=== PATIENT | male | born 1980 | race Caucasian/White ===

== ENCOUNTER 2020-02-13 22:08 | Emergency (ER) | payer OTHER, SELFPAY ==
--- NOTE | 2020-02-13 22:12 | XR_ITS ---
WS: [id number] XR hand LT min 3V* [id number] REASON FOR EXAM: Laceration FINDINGS: There appears to be wrapping of the left distal index finger. Presumably this is the site of lacerati on. No bony or joint abnormality is identified in the index finger. No radiopaque foreign body. The remainder the examination there are no significant bony or joint abnormalities. There is mild deg enerative arthropathy in the carpal metacarpal joints of the left thumb. XR/XR hand LT min 3V* [id number] IMPRESSION: No significant bony or joint abnormality. No radiopaque foreign body.
[2020-02-13 22:15] VITALS: BP 137/89; PULSE 83; RESP 20; TEMP 36.3; O2SAT 97; BMI 26.4
--- NOTE | 2020-02-13 22:23 | ED_ITS ---
HPI - Wound/Laceration General: Chief Complaint: Wound/Laceration Stated Complaint: severe hand injury Time Seen by Provider: 02/13/20 22:14 History of Present Illness: HPI narrative: Patient is a 39-year-old male who comes to the ED with laceration to left hand. Patient was working on table saw and accidentally cut digits 2 3 and 4 on left hand. He says he is in 10 out of 10 pain. Patient says he needs an updated tetanus shot. Associated symptoms: Denies chills, fever(s), nausea or vomiting Review of Systems Const: Denies: fever(s), chills or fatigue Eyes: Denies: change in vision or eye discomfort ENMT: Denies: throat pain, odynophagia, nasal discharge or nasal congestion Card: Denies: chest pain, palpitations, edema, swelling of feet/ankles, dyspnea on exertion or orthopnea Resp: Denies: dyspnea, productive cough or non-productive cough GI: Denies: abdominal pain, nausea, vomiting, diarrhea, constipation or hematochezia : Denies: flank pain, difficulty urinating, dysuria or hematuria Musc: Denies: neck pain, back pain or extremity swelling Skin/Breast: Reports: new lesions (Laceration to digits on left hand.); Denies: rash Neuro: Denies: headache(s), numbness in extremities or weakness in extremities Physical Exam Const: COMMON NORMALS: no acute distress, patient oriented x3, healthy appearing and alert GENERAL APPEARANCE: cooperative and comfortable HENMT: COMMON NORMALS: normocephalic HEAD & SCALP: normocephalic MOUTH: Normal oral and palatal mucosa present THROAT: posterior oropharynx normal and uvula midline Neck/C-Spine: COMMON NORMALS: supple GENERAL: Yes normal visual inspection Resp: COMMON NORMALS: normal respiratory effort, No retractions, No use of accessory muscles and clear to auscultation bilaterally AUSCULTATION: clear to auscultation bilaterally Cardio: COMMON NORMALS: regular rate, regular rhythm, S1 normal heart sound present, S2 normal heart sound present, No gallops present (Cardio), No clicks present (Cardio), No murmurs present (Cardio) and Peripheral pulses 2+ throughout RATE: regular rate RHYTHM: regular rhythm HEART SOUNDS: S1 normal heart sound present and S2 normal heart sound present PERIPHERAL PULSES: Peripheral pulses 2+ throughout GI: COMMON NORMALS: Normal to inspection, nondistended, normoactive bowel sounds present, Soft to palpation, non-tender and no masses PALPATION: Yes Soft to palpation : COMMON NORMALS: Yes no CVA tenderness BLADDER/KIDNEY EXAM: Yes no CVA tenderness Back/Pelvis: COMMON NORMALS: no CVA tenderness Extremity: NARRATIVE EXTREMITY EXAM: Left hand? second digit has irregular 2 cm laceration to palmar side. Patient unable to flex DIP joint on finger. PIP joint range of motion intact. Cap refill normal. Patient appears to have flexor tendon laceration due to patient unable to move PIP joint. Third digit has irregular 1.5 cm laceration to palmar side around PIP joint. Patient has full range of motion of finger and no flexor tendon Injury noted. Cap refill normal. Fourth digit has small linear 0.5 cm laceration to palmar side on distal pad of finger. Finger is full range of motion and cap refill normal. GENERAL: Yes normal exam except as noted Neuro: COMMON NORMALS: patient oriented x3 and moves all extremities SENSORIUM/ORIENTATION: Yes alert Skin: NARRATIVE SKIN EXAM: Laceration on left hand noted in extremity section. GENERAL SKIN EXAM: dry skin Procedures Laceration Laceration 1: Site: hand (2nd digit) Side (If applicable): left Size (cm): 2 Description: irregular Depth: involves tendon Local Anesthetic: other anesthetic (Digital block performed with bupivacaine) Pre-repair: irrigated extensively (with normal saline) Skin layer closed with: nylon Size (cm): 4-0 Number of sutures: 6 Technique: simple, interrupted Laceration 2: Site: hand (3rd digit) Side (If applicable): left Size (cm): 1.5 Description: irregular Local Anesthetic: other anesthetic (Digital block performed with bupivacaine) Number of sutures: 4 Laceration 3: Site: hand (4th digit) Side (If applicable): left Size (cm): 0.5 Description: linear Depth: simple, single layer Local Anesthetic: other anesthetic (Digital block performed with bupivacaine) Pre-repair: irrigated extensively (With normal saline) Skin layer closed with: nylon Size (cm): 4-0 Number of sutures: 1 Nerve Block Nerve Block 1: Time out performed: Yes Local Anesthetic: bupivacaine 0.5% Amount of anesthesia used (mL): 30 Side: left Nerve Blocks: digital (Digital nerve block performed on digits 2, 3 and 4) Procedure Successful: Yes Patient Tolerated Procedure: well Complications: none Course Reevaluation(s): Reevaluation #1: Patient tolerated procedure well and there is no more active bleeding. Patient told to contact Dr. King the hand specialist at [facility] and he was given contact information with phone number [phone]. Vital Signs: Vital signs: Vital Signs Temperature 97.9 F 02/14/20 00:35 Pulse Rate 84 02/14/20 00:35 Respiratory Rate 18 02/14/20 00:35 Blood Pressure 138/72 02/14/20 00:35 Pulse Oximetry 99 02/14/20 00:35 MDM - Wound/Laceration MDM Narrative: Medical decision making narrative: Patient is a 39-year-old male comes to the ED with laceration to second third and fourth digit of the left hand due to table saw. Patient was given tetanus shot while here in the ED. digital nerve block performed on left hand second third and fourth digits. Laceration sites were irrigated extensively with normal saline. sutures used to close up laceration site on fingers and controlled bleeding. Patient has flexor tendon injury on index finger of left hand. Patient was given contact information for Dr. King the hand specialist at [facility]. Case management order was placed for patient to be referred to a hand specialist as well. Patient was put on a prescription of cephalexin and told to follow-up with PCP in about 7 days to reevaluate lac site and removal of sutures. I stressed to him the importance of getting in touch with hand specialist to address flexor tendon injury as soon as possible. Laceration sites were bandaged and bacitracin was also placed on wound. Patient discharged return to ED precautions given. Patient understood and agreed with plan. Imaging Data^: Xray Ortho: Attestation: I personally reviewed and interpreted this imaging study as follows: My impression: Left hand x-ray?No visible foreign bodies or fractures seen. Discharge Plan Discharge Patient Disposition: Home Clinical Impression: Laceration Flexor tendon laceration of finger with open wound Qualifiers: Encounter type: initial encounter Qualified Code(s): S56.129A - Laceration of flexor muscle, fascia and tendon of unspecified finger at forearm level, initial encounter Condition: Stable Prescriptions: New Keflex 500 mg capsule 500 mg PO Q6H 7 Days Qty: 28 RF: 0 Discharge Orders: Discharge Order (Routine); Ordered 02/14/20 Ordered By: Vipul Hamilton Discharge Diet: Regular Discharge Activity: Limit activity as instructed Patient Instructions: Suture Care (ED), Finger Laceration (ED) Activity Restrictions/Additional Instructions: Contact Dr. King the Hand specialist at [facility] in [place] ([phone]) to discuss fixing cut tendon on left index finger.. take full course of antibiotics as prescribed. Keep laceration site clean and dry for the next 48 hours. Then after that you can clean and re-bandage daily. Watch for signs of infection such as redness, warmth, increased tenderness and puslike drainage. If you see the signs of infection return to the ED, urgent care or PCP for reevaluation. call your PCP to schedule a follow-up appointment for reevaluation and suture removal in about 7-10 days. Continue taking all home meds. Follow discharge plans as discussed. You can return to the ED if symptoms worsen. Coding Level of Care Code ED Emergency Department Director for [facility] Exam Comprehensive
[2020-02-13] MEDS: HYDROcodone-acetaminophen 7.5-325 mg Tablet 1 TAB PO (22:30)
[2020-02-13] MEDS: tetanus-diphtheria tox (adult) 0.5 mL SDV IM (22:31)
[2020-02-13] MEDS: cephALEXin 500 mg Capsule PO (22:31)
[2020-02-13 22:43] VITALS: BP 137/89; PULSE 84; RESP 18; O2SAT 96
[2020-02-14] MEDS: bacitracin ointment Pkt 1 EACH TOPICAL (00:05)
[2020-02-14] MEDS: HYDROcodone-acetaminophen 7.5-325 mg Tablet 2 TAB PO (00:25)
[2020-02-14 00:35] VITALS: BP 138/72; PULSE 84; RESP 18; TEMP 36.6; O2SAT 99
--- NOTE | 2020-02-14 10:16 | DCPLANNER ---
slot operations manager had message to schedule a follow up appointment for patient with a hand specialist in [place], with Dr. King. slot operations manager faxed patients records to the [facility].
--- NOTE | 2020-02-23 12:03 | DCPLANNER ---
web production manager called the ortho clinic, at [facility], supervisor case loading was told that the clinic has tried to call patient to schedule a follow up, was unable to speak with patient. No appointment is scheduled at this time.
== END 2020-02-14 00:39 | disposition home or self-care (01) ==
PROVIDERS: Emergency Provider Physician Assistant
DX: S61.211A Laceration without foreign body of left index finger without damage to nail, initial encounter (principal); S61.213A Laceration without foreign body of left middle finger without damage to nail, initial encounter; S56.122A Laceration of flexor muscle, fascia and tendon of left index finger at forearm level, initial encounter; S61.215A Laceration without foreign body of left ring finger without damage to nail, initial encounter; Z23 Encounter for immunization; W27.0XXA Contact with workbench tool, initial encounter
CPT/HCPCS: 12002; 12345; 73130; 90471; 90714; 99281; 99283; A6446; J3490

== ENCOUNTER 2024-08-19 18:37 | Emergency (ER) | payer OTHER, SELFPAY ==
[2024-08-19 18:46] VITALS: BP 127/82; PULSE 90; RESP 17; TEMP 36.3; O2SAT 98; BMI 27.5
[2024-08-19 19:21] VITALS: BP 120/95; PULSE 94; O2SAT 99
--- NOTE | 2024-08-19 19:36 | ED_ITS ---
HPI - Animal Bite General: Chief Complaint: Animal Bite Stated Complaint: Possible Rabbies Time Seen by Provider: 08/19/24 18:43 History of Present Illness: 43-year-old male presents ER chief compl aint of recent cat bites of both of his hands patient was helping his girlfriend provide medication antibiotics to a domesticated domesticated stray cat may have bitten him multiple times or scratched him while he was attempting to help provide the cat some antibiotics. The cat was euthanized which was sent off to testing as there was concerns of potential rabies patient reports multiple little scratches and little cuts to both of his hands. He denies any additional redness no fevers or chills he was sent here for further assessment management for need for rabies vaccination series. Associated symptoms: Deny chills, fever(s) or headache(s) Related Data Previous Rx's ?Medication ?Instructions ?Recorded amoxicillin 500 mg-potassium 1 tab PO BID #14 tabs clavulanate 125 mg tablet (Augmentin) Allergies Allergy/AdvReac Type Severity Reaction Status Date / Time oseltamivir (From Tamiflu) Allergy ALGY-Rash Verified 02/13/20 22:21 Review of Systems General: Reports: 10 or more systems reviewed and unremarkable except in HPI and below Const: Denies: fever(s), chills, fatigue or malaise Eyes: Denies: change in vision or blurry vision Card: Denies: chest pain or palpitations Resp: Denies: dyspnea or productive cough GI: Denies: abdominal pain, nausea or vomiting : Denies: flank pain Musc: Denies: extremity pain or extremity swelling Skin/Breast: Reports: sores (Multiple superficial scratches or bites ap preciated all the fingers no pallavi); Denies: rash or pruritus Neuro: Denies: headache(s) Psych: Denies: anxiety or depression Alec/Lymph: Denies: easy bleeding All/Imm: Denies: urticaria, throat swelling or facial swelling Physical Exam Const: COMMON NORMALS: no acute distress, patient oriented x3 and healthy appearing HENMT: COMMON NORMALS: normocephalic and atraumatic HEAD & SCALP: normocephalic and atraumatic Eye: COMMON NORMALS: Equal, round and reactive pupils present and EOMs intact bilaterally PUPIL: Yes Equal, round and reactive pupils present Neck/C-Spine: COMMON NORMALS: full ROM, supple and no JVD Lymph: LYMPHATIC: no lymphadenopathy noted Chest: COMMONS NORMALS: normal inspection of the chest and normal palpation of entire chest wall Resp: COMMON NORMALS: normal respiratory effort, No retractions and clear to auscultation bilaterally EFFORT & INSPECTION: Yes able to speak in complete sentences and Yes symmetric chest movement AUSCULTATION: clear to auscultation bilaterally Cardio: COMMON NORMALS: no JVD, regular rate and regular rhythm RATE: regular rate RHYTHM: regular rhythm GI: COMMON NORMALS: Normal to inspection, nondistended, normoactive bowel sounds present, Soft to palpation and non-tender INSPECTION: Yes normal to inspection PALPATION: Yes Soft to palpation : COMMON NORMALS: Yes no CVA tenderness BLADDER/KIDNEY EXAM: Yes no CVA tenderness Back/Pelvis: COMMON NORMALS: no CVA tenderness Extremity: COMMON NORMALS: normal to inspection and full ROM Neuro: COMMON NORMALS: patient oriented x3, CN's II-XII intact bilaterally, moves all extremities and no focal motor deficits Psych: COMMON NORMALS: mental status grossly normal, Normal thought process present, cooperative and normal affect THOUGHT PROCESS: Normal thought process present Skin: COMMON NORMALS: no rashes or lesions noted; negative for no wounds (Multiple appearing scratches or superficial bites or lacerations of appreci) GENERAL SKIN EXAM: no rashes or lesions noted Course Vital Signs: Vital signs: Vital Signs Temperature 97.3 F L 08/19/24 18:46 Pulse Rate 94 08/19/24 19:21 Respiratory Rate 17 08/19/24 18:46 Blood Pressure 120/95 08/19/24 19:21 Pulse Oximetry 99 08/19/24 19:21 Oxygen Delivery Me thod Room Air 08/19/24 19:21 MDM - Animal Bite Medical Decision Making Spoke to the patient at length that there is concerns of the patient that the infected animal did have rabies in which was euthanized and offered testing will initiate the rabies immunoglobulin series to the ER advised patient has a low likelihood of however due to the mortality morbidity rate is extremely high with rabies it would be best served to be conservative regards to providing this therapy versus waiting. Patient understood. No radiology studies performed this visit Discharge Plan Discharge Patient Disposition: Home Clinical Impression: Rabies contact, Cat bite Condition: Stable Prescriptions: New amoxicillin-pot clavulanate [Augmentin] 500-125 mg tablet 1 tab PO BID Qty: 14 0RF Discharge Orders: Discharge ED (Routine); Ordered 08/19/24 Ordered By: Manuel Phelan Discharge Diet: Advance as tolerated Discharge Activity: Resume usual activity Patient Instructions: Rabies Vaccine (By injection) (Imovax Rabies, RabAvert), Rabies Immune Globulin (By injection), Rabies (ED), Animal Bite (ED) Activity Restrictions/Additional Instructions: You are to further follow-up in the ER with your scheduled the subsequent dosages of your rabies immunization over the next several weeks if the animal on questions tests come back negative you can discontinue any additional immunizations. You have initially started on some antibiotics for your cat bites as well as scratches to reduce infection concerns. Please take this as prescribed. Your next day to show up in the ER as today is on August 22 followed by August 26, followed by September 02. If you have any additional questions pickup please contact the ER for further help. Print Language: Taiwanese Coding Level of Care Code ED Data Processing Systems Consultant for Eric Salas
[2024-08-19] MEDS: rabies IG 300 unit/mL SDV 1 mL 1830 UNIT IM (19:57)
[2024-08-19] MEDS: rabies vaccine 2.5 unit SDV IM (20:07)
[2024-08-19 20:41] VITALS: BP 124/86; PULSE 98; O2SAT 98
== END 2024-08-19 20:20 | disposition home or self-care (01) ==
PROVIDERS: Emergency Provider Emergency Medicine
DX: Z20.3 Contact with and (suspected) exposure to rabies (principal); Z29.14 Encounter for prophylactic rabies immune globulin; W55.01XA Bitten by cat, initial encounter
CPT/HCPCS: 90375; 90471; 90675; 99283

== ENCOUNTER 2024-08-22 15:24 | Oncology outpatient (recurring) (ONCR) | payer OTHER, SELFPAY ==
[2024-08-22] MEDS: rabies vaccine 2.5 unit SDV IM (15:39)
== END 2024-09-19 23:59 | disposition home or self-care (01) ==
PROVIDERS: Visit Provider Family Medicine
DX: Z23 Encounter for immunization (principal); Z20.3 Contact with and (suspected) exposure to rabies; W55.01XA Bitten by cat, initial encounter
CPT/HCPCS: 90471; 90675